=== PATIENT | female | born 1940 | race Caucasian/White ===

== ENCOUNTER 2018-12-16 08:46 | Day surgery (SDC) | payer MEDICARE, OTHER ==
[~2018-12-16] VITALS: Ht 154.9 cm; Wt 79.4 kg
[~2018-12-16 08:46] MED LIST: CALCIUM + D3 E1 EACH PO; CHLORTHALIDONE25 MG PO; KLOR-CON 1010 MEQ PO; ONE DAILY1 EAC1 PO; THEO-24200 MG PO; ZYRTEC10 M3 PO
--- NOTE | 2018-12-16 09:22 | NUR ---
PT HERE JOHN PROCEDURE IN ROOM BY DR APPLE.
[2018-12-16] MEDS ORDERED: ADVAIR 250-501 EACH INH (09:26)
[2018-12-16] MEDS ORDERED: CARDURA2 MG PO (09:29)
--- NOTE | 2018-12-16 10:19 | NUR ---
PROCEDURE COMPLETE. INSTRUCTIONS GIVEN BU DR APPLE. NO QUESTIONS. DCD AMB
--- NOTE | 2018-12-17 21:40 | OR ---
[facility] [address], [place] [address] Signed DATE OF OPERATION: 12/16/2018 SURGEON: Yari Apple MD PREOPERATIVE DIAGNOSIS: Right thyroid nodule 14 mm (solid). POSTOPERATIVE DIAGNOSIS: Right thyroid nodule 14 mm (solid). PROCEDURES PERFORMED: 1. Ultrasound of thyroid. 2. Right ultrasound-guided fine-needle aspiration biopsy of thyroid nodule. ANESTHESIA: 1% lidocaine. INDICATION: This 78-year-old white woman has significant deafness, though she does have a cochlear implant and is reasonably functional in that regard. She is a patient of Dr. Bere dsouza. She has had a thyroid nodule noted on the right side, which is 14 mm in size and relatively stable over time with ultrasound followup. She has not had a biopsy of the lesion. She is admitted at this time to undergo fine-needle aspiration biopsy of the solid nodule that is 14 mm in size. She understands the risks of bleeding, infection, failure of diagnosis, misdiagnosis, and other unforeseen complications, and understand that she wished to proceed. FINDINGS: The patient was unable to extend her neck up to any degree. This has provided some challenge to adequate interrogation of the nodule, but it was accomplished most dominantly with mid transducer anterior approach, though a lateral approach was undertaken as well. There were no complications. DESCRIPTION OF PROCEDURE: In Day Surgery, she was placed on the stretcher and attempts at passage of a pillow behind her shoulders to allow for neck extension was not tolerated by the patient. Indeed, she could not really extend much due to discomfort or other uncertain complaints. On that basis, a neutral neck position was maintained. The neck was interrogated with a SonoSite ultrasound probe showing a left-sided normal thyroid, normal appearing isthmus, and on the right side, relatively distinct solid nodule about Electronically Signed By: YARI APPLE MD 12/17/18 2140 PATIENT NAME: PIPER LARKIN OPERATIVE REPORT DATE OF : 42 REPORT #: [id number] PHYSICIAN: YARI APPLE MD PCP: MAN ARTEAGA DO REPORT IS CONFIDENTIAL AND NOT TO BE RELEASED WITHOUT AUTHORIZATION [facility] [address], [place] [address] Signed 14 mm in size. This appeared to be the dominant nodule. The jugular vein and carotid artery appeared patent and none trouble. The neck was then prepared with a chlorhexidine solution and draped sterilely. The ultrasound probe was placed in a sterile sleeve and sterile gel applied to the neck once again. Evaluation of the right lobe was once again undertaken in two areas for both lateral and anterior midline puncture site injected with 1% lidocaine. Using a 22-gauge needle with a 10 mL syringe and control syringe, the lateral approach was initially undertaken allowing for the needle to be manipulated into position. Due to her fair amount of swallowing on the patient's part and somewhat non-optimal neck extension, this approach was not reliably successful and assuredly puncturing the nodule, and the needle was removed and puncture was begun in the midline in the transverse plane at the midportion of the transducer itself. This allowed for reliable puncture of the nodule itself. Multiple passes were taken under suction and the syringe removed after discontinuing suction. The needle was then offloaded into the appropriate solution. Another syringe with a new needle was once again passed in a similar way with high reliability of puncturing the nodule itself. The cells were offloaded into the same container. Examination of the neck with the ultrasound probe showed no sign of complications, specifically no bleeding, hematoma, or other problem. A Band-Aid was applied. MD TATE Neri/LOCOL /[id number] cc: Man Arteaga DO Copies: MAN ARTEAGA DO ~ Electronically Signed By: YARI APPLE MD 12/17/18 2140 PATIENT NAME: PIPER LARKIN DECEMBER OPERATIVE REPORT DATE OF : 42 REPORT #: [id number] PHYSICIAN: YARI APPLE MD PCP: MAN ARTEAGA DO REPORT IS CONFIDENTIAL AND NOT TO BE RELEASED WITHOUT AUTHORIZATION
== END 2018-12-16 18:00 | disposition home or self-care (01) ==
LOC: OPS 08:46 → DSVR 08:51 → OPS 09:30 → DS 09:30 → OPS 18:00
PROC: 0GBH3ZX Excision of Right Thyroid Gland Lobe, Percutaneous Approach, Diagnostic (ICD-10-PCS; principal; 2018-12-16)
PROC: BG44ZZZ Ultrasonography of Thyroid Gland (ICD-10-PCS; 2018-12-16)
DX: E04.1 Nontoxic single thyroid nodule (principal); I10 Essential (primary) hypertension; J45.909 Unspecified asthma, uncomplicated; K21.9 Gastro-esophageal reflux disease without esophagitis; E66.9 Obesity, unspecified; H91.13 Presbycusis, bilateral; Z68.33 Body mass index [BMI] 33.0-33.9, adult; Z88.1 Allergy status to other antibiotic agents; Z88.8 Allergy status to other drugs, medicaments and biological substances

== ENCOUNTER 2023-03-30 10:36 | Day surgery (SDC) | payer MEDICARE, OTHER ==
[~2023-03-30] VITALS: Ht 154.9 cm; Wt 86.5 kg
[~2023-03-30 10:36] MED LIST changes: +ADVAIR 250-501 EACH INH; +CARDURA2 MG PO
[2023-03-30 11:04] VITALS: BP 157/80
[2023-03-30] MEDS ORDERED: IRBESARTAN75 MG PO (11:09)
[2023-03-30 12:48] VITALS: BP 167/74
--- NOTE | 2023-03-30 13:04 | NUR ---
03/30/23 1304 [place] 1220 PT ARRIVED TO PACU ON 2L VIA NC, PT AWAKE AND TALKING TO RN. 1230 O2 REMOVED AND PT ROLLED TO BACK. PT DENIES CONCERNS. DC INSTRUCTIONS GIVEN. 1247 PT UP TO BATHROOM AND REPORTS PASSING LARGE AMOUNT OF GAS. 1300 PT GETTING DRESSED AND SON CALLED FOR RIDE HOME.
--- NOTE | 2023-03-31 15:49 | OR ---
[facility] [address], [place] [address] Signed DATE OF OPERATION: 03/30/2023 SURGEON: Yari Apple MD PREOPERATIVE DIAGNOSIS: History of adenomatous polyps x3 in 2017. POSTOPERATIVE DIAGNOSES: 1. A 2 cm pedunculated polyp at sigmoid (25 cm). 2. Diverticulosis. PROCEDURE: Total colonoscopy to cecum with hot snare polypectomy x1. ANESTHESIA: Intravenous sedation, fentanyl 100 mcg and Versed 7 mg. INDICATIONS: This 83-year-old white woman is a patient of Dr. Clemencia Mccormick has history of polyps, having undergone colonoscopy by me in 2017, at which time she was found to have three tubular adenomas, two at the hepatic flexure and one at the sigmoid. She has no current symptoms of bleeding, diarrhea, or constipation. She has no known family history of colon cancer. She has an underlying severe hearing disability, having undergone cochlear implant. She understands risk of surveillance colonoscopy, understand the risk of bleeding, infection, and perforation, particularly. Understanding this, she wished to proceed. FINDINGS: The prep was excellent. Complete colonoscopy was undertaken to the cecum without question. She had numerous diverticula of the sigmoid and left colon. There was a relatively large somewhat hypervascular pedunculated polyp at 25 cm, this was excised with hot snare technique. DESCRIPTION OF PROCEDURE: The patient was brought to the endoscopy suite and placed in lateral decubitus position given intravenous sedation to the point of slurred speech and nystagmus. Digital rectal examination was normal. An Olympus video colonoscope was passed into the rectum and manipulated throughout the colon, ultimately intubating the cecum itself, noted along the way were numerous Electronically Signed By: YARI APPLE MD 03/31/23 1549 PATIENT NAME: PIPER LARKIN OPERATIVE REPORT DATE OF : 42 REPORT #: [id number] PHYSICIAN: YARI APPLE MD PCP: CLEMENCIA MCCORMICK MD REPORT IS CONFIDENTIAL AND NOT TO BE RELEASED WITHOUT AUTHORIZATION [facility] [address], [place] [address] Signed diverticula of the sigmoid and left colon as well as a pedunculated hypervascular polyp. Once the cecum was obtained, the scope was carefully withdrawn, examination throughout showed no sign of abnormality into the left colon, where diverticula were once again seen. Ultimately, the offending polyp at 25 cm was identified. This was excised with hot snare technique and passed for Pathology. The scope was reintroduced showing no sign of bleeding. The stalk may have some residual adenomatous change with it that is not entirely certain, attempts to reestablish for additional resection was not possible. The scope was withdrawn from the sigmoid once again and remaining colon including rectum was normal. Scope was removed and the patient taken to the recovery room in good condition. CONCLUDING DIAGNOSES: 1. Diverticulosis. 2. Large pedunculated polyp at 25 cm (excised with hot snare polypectomy technique). PLAN: Recommend repeat colonoscopy in 2-3 years or sooner if clinically indicated. She will return to the ongoing care of Dr. Clemencia Mccormick. MD TATE Neri/ROJELIO /[id number] cc: Clemencia Mccormick MD Copies: CLEMENCIA MCCORMICK DMD ~ Electronically Signed By: YARI APPLE MD 03/31/23 1549 PATIENT NAME: PIPER LARKIN DECEMBER OPERATIVE REPORT DATE OF : 42 REPORT #: [id number] PHYSICIAN: YARI APPLE MD PCP: CLEMENCIA MCCORMICK MD REPORT IS CONFIDENTIAL AND NOT TO BE RELEASED WITHOUT AUTHORIZATION
--- NOTE | 2023-04-01 14:57 | PATH ---
[facility] [address] [place], [place] [address] Signed SPECIMEN(S): A SIGMOID POLYP AT 25 CM SPECIMEN SOURCE: A. SIGMOID POLYP AT 25 CM CLINICAL HISTORY: Hx of polyps. Post Op: Colon polyps, diverticulosis. FINAL PATHOLOGIC DIAGNOSIS: Sigmoid polyp at 25 cm: - Tubular adenoma. JVR:cml MICROSCOPIC EXAMINATION: Histologic sections of all submitted blocks are examined by light microscopy. These findings, together with the gross examination, support the pathologic diagnosis. GROSS DESCRIPTION: The specimen, labeled and designated "Jered, sigmoid polyp at 25 cm," is received in formalin and consists of a polyp of brown-santa soft tissue (1.2 x 0.7 x 0.7 cm). The resection margin is inked blue, and the tissue is bisected to reveal red-brown to santa soft cut surfaces. The specimen is submitted entirely in cassette (A1). VB (under the direct supervision of a pathologist) The Gross Description was prepared using a voice recognition system. The report was reviewed for accuracy; however, sound-alike word errors, addition and/or deletions may occur. If there is any question about this report, please contact Client Services. PERFORMING LABORATORY: Technical component was performed by [facility], [address] [place] [id number] (CLIA# [id number]). Professional interpretation was performed by [facility], [address] [place] [id number] (CLIA#: [id number]). Diagnostician: Alan Carvalho MD Pathologist Electronically Signed 04/01/2023 PATIENT NAME: PIPER LARKIN DUNG PATHOLOGY DATE OF : 42 REPORT #: [id number] PHYSICIAN: [facility] PCP: CLEMENCIA MCCORMICK MD REPORT IS CONFIDENTIAL AND NOT TO BE RELEASED WITHOUT AUTHORIZATION [address] [address] Signed Copies: ~ PATIENT NAME: PIPER LARKIN DUNG PATHOLOGY DATE OF : 42 REPORT #: [id number] PHYSICIAN: [facility] PCP: CLEMENCIA MCCORMICK MD REPORT IS CONFIDENTIAL AND NOT TO BE RELEASED WITHOUT AUTHORIZATION
== END 2023-03-30 13:07 | disposition home or self-care (01) ==
LOC: OPS 10:36 → DS 11:05 → OPS 12:00 → DS 04-02 08:45
PROVIDERS: ATTEND Surgery
PROC: 0DBE8ZZ Excision of Large Intestine, Via Natural or Artificial Opening Endoscopic (ICD-10-PCS; principal; 2023-03-30 12:00)
DX: Z12.11 Encounter for screening for malignant neoplasm of colon (principal); K57.30 Diverticulosis of large intestine without perforation or abscess without bleeding; Z86.010 Personal history of colon polyps; I10 Essential (primary) hypertension; J45.909 Unspecified asthma, uncomplicated; E04.1 Nontoxic single thyroid nodule; H91.13 Presbycusis, bilateral; D12.5 Benign neoplasm of sigmoid colon
CPT/HCPCS: 88305; 99153; G0500; J2250; J3010; J7121

== ENCOUNTER 2024-10-10 09:53 | Emergency (ER) | payer MEDICARE, OTHER ==
[~2024-10-10] VITALS: Ht 154.9 cm; Wt 76.8 kg
[~2024-10-10 09:53] MED LIST changes: +IRBESARTAN75 MG PO
[2024-10-10] MEDS ORDERED: METOPROLOL TARTRATE 5 MG/5 ML VIAL IV ONE (10:30)
[2024-10-10] MEDS ORDERED: METOPROLOL SUCCINATE 25 MG TABCR PO ONE (10:30)
[2024-10-10] MEDS ORDERED: APIXABAN 5 MG TAB PO ONE (10:30)
[2024-10-10 10:42] LABS: BASOPHILS 0.8 % (0-2); EOSINOPHILS 1.3 % (0-6); HEMATOCRIT 39.1 % (35.0-50.0); HEMOGLOBIN 13.2 g/dL (12.0-18.0); LYMPHOCYTES 16.7 % (24-44); MCH 28.4 (27-36); MCHC 33.7 g/dl (30-36); MCV 84.3 fl (81-99); MONOCYTES 7.7 % (0-12); NEUTROPHILS 73.5 % (39-80); PLATELET COUNT 320 K/uL (140-440); RBC 4.64 M/ul (4.3-5.7); RDW 15.1 (10.5-15.0)
[2024-10-10 11:04] LABS: ALBUMIN 3.5 g/dL (3.4-5.0); BILIRUBIN, TOTAL 0.3 mg/dL (0.2-1.0); BUN/CREATININE RATIO 27.53 (6.0-28.6); CALCIUM 9.3 mg/dL (8.5-10.1); CREATININE, SERUM 0.69 mg/dL (0.55-1.02)
[2024-10-10] MEDS ORDERED: ELIQUIS5 MG PO (11:28)
[2024-10-10] MEDS ORDERED: TOPROL XL25 MG PO (11:28)
[2024-10-10 12:45] VITALS: BP 148/99
--- NOTE | 2024-10-10 13:46 | EKG ---
[facility] [address] [facility] [place] [address] Signed Atrial fibrillation Minimal voltage criteria for LVH, may be normal variant ( R in aVL ) Nonspecific ST and T wave abnormality Abnormal ECG No previous ECGs available Confirmed by Aniceto Ritchie DO ([id number]) on 10/10/2024 1:46:33 PM Electronically Signed By: ANICETO RITCHIE DO 10/10/24 1346 PATIENT NAME: DIGNAMICAHRADHAPIPER DECEMBER Electrocardiogram DATE OF : 42 PHYSICIAN: ANICETO RITCHIE DO REPORT #: [id number] REPORT IS CONFIDENTIAL AND NOT TO BE RELEASED WITHOUT AUTHORIZATION
== END 2024-10-10 12:50 | disposition home or self-care (01) ==
LOC: ED 09:53
PROVIDERS: Emergency Medicine
DX: I48.0 Paroxysmal atrial fibrillation (principal); I10 Essential (primary) hypertension; Z88.8 Allergy status to other drugs, medicaments and biological substances; Z88.1 Allergy status to other antibiotic agents; Z79.51 Long term (current) use of inhaled steroids; Z79.899 Other long term (current) drug therapy
CPT/HCPCS: 36415; 71045; 80053; 83735; 83880; 84484; 85025; 93005; 93010; 93306; 96374; 99285-25